=== PATIENT | male | born 1960 | race Caucasian/White ===

== ENCOUNTER 2019-02-28 17:31 | Emergency (ER) | payer MEDICAID ==
[~2019-02-28] VITALS: Ht 162.6 cm; Wt 92.0 kg
[~2019-02-28 17:31] MED LIST: ACET1TAB40 PO; ERYT1OIN6 LEFT EYE; OFLO5DRO46 BOTH EYES
[2019-02-28 17:45] VITALS: Ht 162.6 cm; Wt 92.0 kg
[2019-02-28] MEDS ORDERED: TETRACAINE 0.5% 4 ML OPH BOTH EYES ONE (18:30)
[2019-02-28] MEDS ORDERED: FLUORESCEIN STRIP BOTH EYES ONE (18:30)
[2019-02-28 19:45] VITALS: BP 133/75; PULSE 83; RESP 16
== END 2019-02-28 19:45 | disposition home or self-care (01) ==
LOC: FTE 17:31
DX: S05.02XA Injury of conjunctiva and corneal abrasion without foreign body, left eye, initial encounter (principal); X58.XXXA Exposure to other specified factors, initial encounter; Y92.9 Unspecified place or not applicable
CPT/HCPCS: Z7502; Z7610; 99283